=== PATIENT | female | born 1970 ===

== ENCOUNTER 2019-01-16 20:53 | Emergency (ER) | payer SELFPAY ==
[2019-01-16 20:59] VITALS: BP 134/80; PULSE 76; RESP 16; TEMP 98.3; O2SAT 97
[2019-01-16] MEDS ORDERED: Sodium Chloride 0.9% 1,000 ML IV STA (21:15)
--- NOTE | 2019-01-16 21:55 | ED PDOC ---
HPI: Female Pain Time Seen by Provider: 01/16/19 21:04 Chief Complaint (Nursing): Female Genitourinary Chief Complaint (Provider): female genitourinary History Per: Patient History/Exam Limitations: no limitations Onset/Duration Of Symptoms: Days (1x) Current Symptoms Are (Timing): Still Present Severity: Moderate Pain Scale Rating Of: 8 Associated Symptoms: Urinary Symptoms (increase in frequency). denies: Nausea, Vomiting Additional Complaint(s): 48 year old female with a past medical history of kidney stones presents to the ED for an evaluation of flank pain and urinary frequency ongoing for 1x day. Patient states that the pain starts in the flank and radiates to her right upper abdomen. Patient also reports having an increase in urinary frequency, but is unable to urinate when she tries. Patient states that the pain is a level 8/10 and denies taking medications for pain at home. Patient denies having nausea or vomiting. PMD: None Past Medical History Reviewed: Historical Data, Nursing Documentation, Vital Signs Vital Signs: Last Vital Signs Temp 98.3 F 01/16/19 20:58 Pulse 76 01/16/19 20:58 Resp 16 01/16/19 20:58 BP 134/80 01/16/19 20:58 Pulse Ox 97 01/16/19 20:58 MELISA Report Viewed: Yes Primary Care Provider: FAMILY PROVIDER,NO - Medical History PMH: Depression, Kidney Stones Other PMH: pre-diabetes - Surgical History Surgical History: No Surg Hx - Family History Family History: States: No Known Family Hx - Social History Current smoker - smoking cessation education provided: No Alcohol: None Drugs: Denies - Home Medications Home Medications: Ambulatory Orders Medication Instructions Recorded Tamsulosin [Flomax] 0.4 mg PO DAILY #10 cap 01/17/19 traMADol [Ultram] 50 mg PO Q6 PRN #8 tab 01/17/19 - Allergies Allergies/Adverse Reactions: Allergies Allergy/AdvReac Type Severity Reaction Status Date / Time No Known Allergies Allergy Verified 01/16/19 21:01 Review of Systems ROS Statement: Except As Marked, All Systems Reviewed And Found Negative Gastrointestinal: Positive for: Other (flank pain radiates to right upper abdomen.). Negative for: Nausea, Vomiting Genitourinary Female: Positive for: Frequency Physical Exam - Reviewed Nursing Documentation Reviewed: Yes Vital Signs Reviewed: Yes - Physical Exam Appears: Positive for: Non-toxic, Uncomfortable Head Exam: Positive for: ATRAUMATIC, NORMOCEPHALIC Skin: Positive for: Normal Color, Warm, Dry Eye Exam: Positive for: Normal appearance Cardiovascular/Chest: Positive for: Regular Rate, Rhythm Respiratory: Positive for: Normal Breath Sounds Gastrointestinal/Abdominal: Positive for: Normal Exam, Soft. Negative for: Tenderness Back: Positive for: Normal Inspection. Negative for: L CVA Tenderness, R CVA Tenderness Neurological/Psych: Positive for: Awake, Alert, Oriented (3x) - Laboratory Results Result Diagrams: 01/16/19 21:55 01/16/19 21:55 - ECG O2 Sat by Pulse Oximetry: 97 (RA) Pulse Ox Interpretation: Normal Medical Decision Making Medical Decision Makin:04 Initial impression: 48 year old female with renal colic Initial plan: * CT abd pelvis w/o contrast * CMP * upreg * udip * CBC with differential * urinalysis * IV NS 1,000 ml IV 1,000 mls/hr * toradol 15 mg IVP * reevaluation 23:17 CT Abdomen Pelvis w/ contrast FINDINGS: LUNG BASES: The lung bases appear clear. No pleural effusions are seen. LIVER: Unremarkable. GALLBLADDER AND BILE DUCTS: The gallbladder appears within normal limits. No radioopaque gallstones are seen. No biliary ductal dilatation is evident. PANCREAS: Unremarkable. SPLEEN: Unremarkable. ADRENAL GLANDS: Unremarkable. KIDNEYS, URETERS, AND BLADDER: The kidneys appear within normal limits. There is no hydronephrosis or hyd roureter. There are approximately 3 bilateral non--obstructing calculi seen in the mid-lower renal poles. A 4.3 mm calculus is noted just along the inner wall of the left posterior urinary bladder. There is mild continuous left hydroureter noted from its recent migration. The urinary bladder is normal in size and configuration. STOMACH AND BOWEL: Unremarkable appearance of the stomach and bowel. No evidence of bowel obstruction. No evidence suggesting enteritis or colitis. APPENDIX: No evidence of acute appendicitis on CT examination. PERITONEUM: No free fluid. No free air. LYMPH NODES: No lymphadenopathy is evident. REPRODUCTIVE: Unremarkable as visualized. VASCULATURE: No evidence of abdominal aortic aneurysm. Minor atherosclerotic vascular plaquing is noted. BONES: No aggressive appearing osseous lesion. No acute osseous pathology evident. IMPRESSION: 1. There has been recent migration of a 4.3 mm calculus from the left renal collecting system into the posterior lumen of the urinary bladder. Residual mild left hydroureter is noted. 2. 3 bilateral non--obstructing renal calculi are seen in the mid-lower poles. 01:53 Patient reports improvement of symptoms and is stable for discharge. Diagnosis is ureteral calculi. Patient verbally counseled on appropriate use of opioids including risks and safety plan. Patient was also given instruction with fernando ponce regarding opioid use and safety. ScribeAttestation: Documented byYecenia Kenney, acting as a scribe for Stalin Diaz MD. Provider ScribeAttestation: All medical record entries made by the Scribe were at my direction and personally dictated by me. I have reviewed the chart and agree that the record accurately reflects my personal performance of the history, physical exam, medical decision making, and the department course for this patient. I have also personally directed, reviewed, and agree with the discharge instructions and disposition. Disposition - Clinical Impression Clinical Impression: Ureteral calculus - Patient ED Disposition Is Patient to be Admitted: No - Disposition Referrals: Booker Lees Jr., MD [Staff Provider] - Disposition: Routine/Home Disposition Time: 01:54 Condition: STABLE Prescriptions: Tamsulosin [Flomax] 0.4 mg PO DAILY #10 cap traMADol [Ultram] 50 mg PO Q6 PRN #8 tab PRN Reason: flank pain Instructions: Kidney Stones in Adults, Opioids for Short-Term Treatment of Pain, Taking Narcotics Safely Forms: [employer] (Armenian) Print Language: IRISH
[2019-01-16 22:01] LABS: BASO # 0.1 K/uL (0.0-0.2); BASO % 0.9 % (0.0-2.0); EOS # 2.1 K/uL (0.0-0.7); EOS % 14.7 % (0.0-4.0); HEMOGLOBIN 11.6 g/dL (12.0-16.0); LYMPH # 3.2 K/uL (1.0-4.3); LYMPH % 23.1 % (20.0-40.0); MEAN CELL VOLUME 82.1 fl (81.0-99.0); MEAN CORPUSCULAR HEMOGLOBIN 26.4 pg (27.0-31.0); MEAN CORPUSCULAR HGB CONC 32.1 g/dL (33.0-37.0); MEAN PLATELET VOLUME 8.2 fl (7.2-11.7); MONO # 0.7 K/uL (0.0-0.8); MONO % 4.9 % (0.0-10.0); NEUT # 7.9 K/uL (1.8-7.0); NEUT % 56.4 % (50.0-75.0); NRBC % 0.1 % (0.0-0.0); RBC 4.39 Mil/uL (3.80-5.20); RED CELL DISTRIBUTION WIDTH 15.8 % (11.5-14.5)
[2019-01-16 22:06] LABS: SQUAMOUS EPITHIAL 2 /hpf (0-5); URINE BILIRUBIN NEGATIVE (NEGATIVE); URINE BLOOD SMALL (NEGATIVE); URINE CALCIUM OXALATE CRYSTALS FEW /hpf (<OCC); URINE CLARITY SLIGHTY-CLOUDY (Clear); URINE COLOR YELLOW (YELLOW); URINE GLUCOSE (UA) NEG (NEGATIVE); URINE LEUKOCYTE ESTERASE NEG Leu/uL (Negative); URINE PROTEIN 30 mg/dL (NEGATIVE); URINE UROBILINOGEN 0.2-1.0 mg/dL (0.2-1.0)
[2019-01-16 22:09] LABS: ALB/GLOB RATIO 1.2 (1.0-2.1); ALT/SGPT 35 U/L (9-52); AST/SGOT 35 U/L (14-36); BLOOD UREA NITROGEN 18 mg/dl (7-17); CALCIUM 9.5 mg/dL (8.4-10.2); GFR NON-AFRICAN AMERICAN > 60
--- NOTE | 2019-01-17 11:47 | CT ---
Date of service: 01/16/2019 PROCEDURE: CT Abdomen and Pelvis without intravenous contrast HISTORY: renal colic COMPARISON: None. TECHNIQUE: Technique. Contrast dose: Radiation dose: Total exam DLP = 808.82 mGy-cm. This CT exam was performed using one or more of the following dose reduction techniques: Automated exposure control, adjustment of the mA and/or kV according to patient size, and/or use of iterative reconstruction technique. FINDINGS: LOWER THORAX: Small hiatal hernia identified. No pleural or pericardial effusion. Lung bases appear clear. LIVER: Unremarkable. No gross lesion or ductal dilatation. GALLBLADDER AND BILE DUCTS: Unremarkable. PANCREAS: Unremarkable. No gross lesion or ductal dilatation. SPLEEN: Unremarkable. ADRENALS: Unremarkable. No mass. KIDNEYS AND URETERS: Nonobstructing intrarenal calculi are identified at both kidneys numbering at least 3-4 each side. Largest calculus measures 4.5 mm at the upper midpole right kidney and 4 mm at the midpole left kidney. No hydronephrosis or perinephric reaction bilaterally. VASCULATURE: Nonaneurysmal abdominal aortic calcific atherosclerotic changes are identified. BOWEL: Evaluation of the gastrointestinal tract is limited due to the lack of oral contrast administration. . No obstruction. No gross mural thickening. APPENDIX: Unremarkable. Normal appendix. PERITONEUM: Unremarkable. No free fluid. No free air. LYMPH NODES: Shotty medial pericecal and central mesenteric lymph nodes may indicate mesenteric adenitis. Clinically correlate further. BLADDER: 4.3 mm calculus posterior urinary bladder base likely excreted by either of the bilateral kidneys recently. REPRODUCTIVE: Unremarkable. BONES: No acute fracture. OTHER FINDINGS: None. IMPRESSION: 1. Nonobstructing intrarenal calculi are identified at both kidneys with the largest measuring up to 4.5 mm greatest dimension at the right and 4 mm at the left. 4.3 mm calculus recently expelled into the urinary bladder. No definite obstructive uropathy appreciated bilaterally. 2. Potential mesenteric adenitis. Preliminary report provided by [employer], 01/16/2019, 11:17 p.m..
== END 2019-01-17 02:25 | disposition home or self-care (01) ==
LOC: H.ER 20:53
DX: N20.0 Calculus of kidney (principal); R73.03 Prediabetes
CPT/HCPCS: 74176; 80053; 81003; 81025; 85025; 96374; 96375; 99285; J1885; J2270; J7030